=== PATIENT | female | born 1995 | race Caucasian/White ===

== ENCOUNTER 2016-10-27 17:18 | Emergency (ER) | payer BC ==
[2016-10-27] MEDS ORDERED: Lidocaine 1% 30 ML SDV INJECT ONE (21:07)
[2016-10-27] MEDS ORDERED: Bacitracin Oint 1 GM U/D Packet TOP ONE (21:08)
--- NOTE | 2016-10-27 21:10 | EDM.PDOC ---
ED HPI Skin/Rash - General Chief Complaint: Laceration Stated Complaint: PUNTURE FINGER Time Seen by Provider: 10/27/16 21:10 Source: Reports: Patient History Limitations: Reports: No limitations - History of Present Illness INITIAL COMMENTS - FREE TEXT/NARRATIVE: cut right middle finger with scissor while working on [email or web address] project - Related Data Allergies Allergy/AdvReac Type Severity Reaction Status Date / Time No Known Allergies Allergy Verified 10/27/16 19:58 Home Meds: Ambulatory Orders Medication Instructions Recorded Confirmed . [No Known Home Meds] 10/27/16 10/27/16 Past Medical History - Past Health History Medical/Surgical History: Denies Medical/Surgical History Social & Family History - Family History Family Medical History: Noncontributory - Tobacco Use Smoking Status *Q: Never Smoker Second Hand Smoke Exposure: No - Caffeine Use Caffeine Use: Reports: None - Recreational Drug Use Recreational Drug Use: No ED ROS GENERAL - Review of Systems Review Of Systems: See Below ED EXAM, SKIN/RASH Exam: See Below Exam Limited By: No limitations General Appearance: alert, mild distress Ears: normal external exam Throat/Mouth: Normal inspection Neck: full range of motion Respiratory/Chest: no respiratory distress Cardiovascular: normal peripheral pulses Neurological: alert, oriented, normal cognition Psychiatric: normal affect, normal mood Skin: Warm, Wound/incision (1cm laceration right 3rd mid bravo pad, outer edges superficial avulsion. ). No: Intact ED SKIN PROCEDURES - Laceration/Wound Repair Right Distal Finger Appearance: superficial Distal NVT: neuro & vascular intact Anesthetic type: local Local anesthesia - Lidocaine (Xylocaine): 1% plain Local anesthetic volume: other (.5) Skin prep: chlorhexidine (hibiciens), saline Closed with: sutures Suture size: 4-0 # of sutures: 1 Suture type: interrupted Sterile dressing applied: nurse Tetanus status addressed: Yes Complications: No Course - Vital Signs Last Recorded V/S: Last Vital Signs Temp 97.7 F 10/27/16 19:58 Pulse 55 L 10/27/16 21:39 Resp 18 10/27/16 21:39 BP 112/67 10/27/16 21:39 Pulse Ox 100 10/27/16 21:39 - Orders/Labs/Meds Meds: Medications Discontinued Medications Generic Name Dose Route Start Last Admin Trade Name Freq PRN Reason Stop Dose Admin Bacitracin 1 dose 10/27/16 21:08 10/27/16 21:26 Bacitracin Oint 1 Gm TOP 10/27/16 21:09 1 dose ONETIME ONE Administration Lidocaine HCl 30 ml 10/27/16 21:07 10/27/16 21:26 Xylocaine-Mpf 1% INJECT 10/27/16 21:08 30 ml ONETIME ONE Administration Departure - Departure Time of Disposition: 21:49 Disposition: Home, Self-Care 01 Condition: good Clinical Impression: Broken skin Instructions: Laceration Care, Adult, [id number] Forms: ED Department Discharge Additional Instructions: suture out one week keep covered with dressing while at work, may have open to air at night after 48 hours tylenol or ibuprofen for discomfort monitor for infection follow up if increased pain redness or swelling
[2016-10-27 21:40] VITALS: BP 112/67
== END 2016-10-27 21:56 | disposition home or self-care (01) ==
LOC: DL.ED 17:18
DX: S61.212A Laceration without foreign body of right middle finger without damage to nail, initial encounter (principal); W26.8XXA Contact with other sharp object(s), not elsewhere classified, initial encounter; Y99.0 Civilian activity done for income or pay
CPT/HCPCS: 12001; 99283